=== PATIENT | male | born 1955 | race African-American/Black ===

== ENCOUNTER 2021-04-06 17:40 | Emergency (ER) | payer MEDICAID ==
[~2021-04-06] VITALS: Ht 175.3 cm; Wt 80.0 kg
[2021-04-06] MEDS ORDERED: ACETAMINOPHEN 325MG TABLET PO ONE (18:30)
[2021-04-06 19:37] LABS: BASOPHILS % 1.5 % (0.0-2.0); EOSINOPHILS % 2.6 % (0.0-5.0); HEMATOCRIT. 41.6 % (42.0-52.0); HEMOGLOBIN. 14.1 g/dL (14.0-18.0); LYMPHOCYTES % 47.5 % (20.0-50.0); MEAN CORPUSCULAR HEMOGLOBIN 32.5 pg (28.0-32.0); MEAN CORPUSCULAR VOLUME 96.1 fL (80.0-94.0); MEAN PLATELET VOLUME 7.2 fl (7.4-10.4); NEUTROPHILS % 39.4 % (40.0-76.0); PLATELET 176 x1000/uL (130-400); RED BLOOD CELL COUNT 4.33 mill/uL (4.7-6.1); RED CELL DISTRIBUTION WIDTH 15.4 % (11.6-14.6)
[2021-04-06 19:42] LABS: CHLORIDE 110 mEq/L (98-107)
[2021-04-06] MEDS ORDERED: IOHEXOL-300 100 ML BOTTLE ONE (22:21)
[2021-04-07 01:02] VITALS: BP 138/86
== END 2021-04-07 01:03 | disposition home or self-care (01) ==
LOC: ER 17:40
DX: M79.18 Myalgia, other site (principal); R42 Dizziness and giddiness; I10 Essential (primary) hypertension
CPT/HCPCS: 36415; 71260; 73502; 73552; 73560; 73590; 73600; 74177; 80053; 85025; 93005; 99285; Q9967